=== PATIENT | female | born 1975 | race African-American/Black ===

== ENCOUNTER 2025-06-28 10:39 | Emergency (ER) | payer OTHER ==
[2025-06-28] MEDS ORDERED: EPINEPHrine 1 MG/10 ML Abboject SYRINGE ONE (11:00)
== END 2025-06-28 13:21 | disposition expired ==
LOC: NAV ERS 10:39
DX: I46.9 Cardiac arrest, cause unspecified (principal); I13.0 Hypertensive heart and chronic kidney disease with heart failure and stage 1 through stage 4 chronic kidney disease, or unspecified chronic kidney disease; I50.9 Heart failure, unspecified; N18.9 Chronic kidney disease, unspecified; I25.10 Atherosclerotic heart disease of native coronary artery without angina pectoris
CPT/HCPCS: 92950; J0165